=== PATIENT | male | born 1995 | race African-American/Black ===

== ENCOUNTER 2021-12-26 10:22 | Emergency (ER) | payer OTHER ==
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
[2021-12-26] MEDS ORDERED: KETOROLAC 30 MG/ML VIAL IM STA (11:27)
[2021-12-26] MEDS ORDERED: HYDROmorphone 1 MG/ML CARPUJECT IM STA ×2 (11:27→14:00)
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
[2021-12-26] MEDS ORDERED: methocarbamoL 500 MG TABLET PO STA (14:00)
[2021-12-26] MEDS ORDERED: ACETAMINOPHEN 325 MG TABLET PO STA (14:00)
[2021-12-26 14:44] VITALS: BP 135/86
== END 2021-12-26 14:44 | disposition home or self-care (01) ==
LOC: ED 10:22
DX: M54.2 Cervicalgia (principal)
CPT/HCPCS: 72125; 96372; 99282; 99284; A9270; J1170